=== PATIENT | female | born 1965 | race Caucasian/White ===

== ENCOUNTER → 2019-10-13 | Outpatient (CLI) | payer BC ==
[~2019-10-13] MED LIST: ASPI-630 PO; DILT180C2 PO; GABA600T7 PO; GADOTERATE 7.5 MMOL/15ML VIAL. IVP ONE; MILN50TA PO; OMEP20CA16 PO
--- NOTE | 2019-10-13 10:19 | KCIC ---
MRI Brain with and without contrast History:Family history of multiple sclerosis, bilateral lower and upper extremity numbness Technique: Multiplanar, multi sequential pre and postcontrast MR imaging was performed of the brain. Comparison: None Findings: There is no evidence of recent infarct or cytotoxic edema. The ventricles, sulci, and cisterns are within normal limits in size and configuration. There is no significant midline shift, intraaxial mass effect, or focal abnormal extra-axial fluid collection. There are a couple of tiny foci of nonenhancing T2 and FLAIR hyperintense signal of the peripheral left frontal deep white matter with the largest about 3 mm, otherwise no significant focal signal abnormality of the brain parenchyma. There is no nodular parenchymal or leptomeningeal enhancement. There is preservation of the major intracranial flow-voids at the skull base. The cerebellar tonsils are normal in location. There is no significant abnormality of the pineal gland or pituitary gland. There is patchy minimal ethmoid air cell mucosal thickening. There is small probable mucous retention cyst of the posterior left sphenoid sinus although small air-fluid level mild excluded. The mastoid air cells are aerated. There is preserved marrow signal of the clivus. Impression: 1. There is no abnormal intracranial enhancement. There is a couple of tiny foci of nonspecific T2 and FLAIR hyperintense signal of the left frontal deep white matter as may be seen with small foci of nonspecific gliosis, not in a pattern to suggest particular diagnosis and degree of findings which may be seen in asymptomatic individuals. 2. There is a small probable mucous retention cyst of the posterior sphenoid sinus. Electronically signed by: Joce Bernal MD (10/13/2019 10:17 AM) [id number]
== END ==
LOC: KCIC MRI 08:32
PROVIDERS: ATTEND Psychiatry & Neurology Neurology
DX: R41.3 Other amnesia (principal); R20.0 Anesthesia of skin; R20.2 Paresthesia of skin; Z82.0 Family history of epilepsy and other diseases of the nervous system
CPT/HCPCS: 70553; A9575